=== PATIENT | male | born 2000 | race Caucasian/White ===

== ENCOUNTER 2022-02-19 10:21 | Emergency (ER) | payer OTHER, SELFPAY ==
[2022-02-19 10:39] VITALS: BP 140/72; PULSE 76; RESP 18; TEMP 36.9; O2SAT 99
--- NOTE | 2022-02-19 10:49 | ED.GENADULT ---
HPI - General Adult General Chief complaint: Nausea/Vomiting/Diarrhea Stated complaint: diarrhea History of Present Illness HPI narrative: Patient is a 21-year-old male who presents to the [facility] via POV for an evaluation of diarrhea that has been present for 3 days. Additionally, he reports his diarrhea is intermittent. He states having multiple episodes a day that are watery and brown in color. BMs are painful and cause mild cramping. He also reports bloody diarrhea 2 days ago., Denies taking otc meds. Hx of IBS-C in adolscence. Is not being managed by PCP or GI. Related Data Home Medications Medication Instructions Recorded Confirmed dexmethylphenidate 20 mg 20 mg PO DAILY 02/19/22 02/19/22 capsule,extended release [id number] Allergies Allergy/AdvReac Type Severity Reaction Status Date / Time sulfate ion Allergy Hives Verified 02/19/22 10:48 Review of Systems Review of Systems: Denies fever, chills, weight loss, night sweats, fatigue, weakness, skin color changes, heartburn, nausea, vomiting, constipation, dizziness, LOC, black, tarry stools, mucus in stools, urinary symptoms, back pain, shortness of breath, chest pain, heart palpitations PMFSH Past Medical History Medical History Irritable bowel syndrome with constipation Comments I have reviewed and agree with the patient's past medical, surgical, social, and family hx as documented by the RN. There is no relevant family history pertinent to the presenting complaint. Exam Narrative: GENERAL: Well-appearing, well-nourished, and in no acute distress. HEAD: Normocephalic, atraumatic. No sinus tenderness or facial swelling appreciated. EYES: PERRLA and EOMI. No evidence of erythema, swelling, or drainage. ENT: Mucous membranes moist and pink. Uvula is midline without erythema and swelling. No evidence of petechial rash, cobblestoning, lesions, ulcers, erythema, swelling, exudates, peritonsillar abscess, tenting, or drooling. Breath odor and voice normal. NECK: Supple. No Lymphadenopathy or nuchal rigidity appreciated. CHEST: Bilateral lung rogel are clear to auscultation. No respiratory distress. No evidence of cough or pleuritic cp upon examination. HEART: Regular rate and rhythm. No murmur, gallop, or rub heard. ABDOMEN: Soft, nontender, nondistended, normal active bowel sounds in all quadrants. No guarding. No rebound tenderness. No pulsatile or palpable abdominal mass(es). No CVAT EXTREMITIES: Normal range of motion. No edema. SKIN: Warm, dry, no rash. Excellent skin turgor. NEURO: No focal deficits. Alert and oriented x3. SPECIAL OBSERVATIONS: Exam findings inconsistent with complaints. No distress present. Patient is smiling and laughing. Course Course Emergency Course: The patient/guardian displays adequate decision making capability and despite a detailed discussion of alternatives, benefits, risks, and consequences refuses higher level of care to ER via EMS. Level of Care: Express Care Visit Vital Signs Vital signs: Vital Signs Temperature 98.4 F 02/19/22 10:39 Pulse Rate 76 02/19/22 10:39 Respiratory Rate 18 02/19/22 10:39 Blood Pressure 140/72 02/19/22 10:39 Pulse Oximetry 99 02/19/22 10:39 Oxygen Delivery Room Air 02/19/22 10:39 Temperature 98.4 F 02/19/22 10:39 Pulse Rate 76 02/19/22 10:39 Respiratory Rate 18 02/19/22 10:39 Blood Pressure 140/72 02/19/22 10:39 Pulse Oximetry 99 02/19/22 10:39 Oxygen Delivery Room Air 02/19/22 10:39 Due to an elevated blood pressure, I had a detailed discussion with the patient and/or guardian regarding the need for follow-up with their primary care provider within the next 3-4 days. Patient verbalized understanding and agreed. Medical Decision Making Differential Diagnosis Differential Diagnosis: IBS, abdominal pain, gastroenteritis, GI bleed Vital Signs Vital Signs: Vital Si
== END 2022-02-19 11:12 | disposition left against medical advice (07) ==
PROVIDERS: Emergency Provider Nurse Practitioner Family
DX: R19.7 Diarrhea, unspecified (principal); F90.9 Attention-deficit hyperactivity disorder, unspecified type
CPT/HCPCS: 99211; G0463

== ENCOUNTER 2022-04-04 13:44 | Emergency (ER) | payer OTHER, SELFPAY ==
[2022-04-04 13:57] VITALS: BP 115/70; PULSE 77; RESP 18; TEMP 36.9; O2SAT 100
--- NOTE | 2022-04-04 14:06 | ED.EAR ---
HPI - Ear Problem General Chief complaint: Ear Stated complaint: bilateral ear pain Time Seen by Provider: 04/04/22 13:45 Source: patient Mode of arrival: ambulatory Limitations: no limitations History of Present Illness HPI Narrative: 22-year-old male presents to [facility] with complaints of bilateral ear pain, drainage and decreased hearing for the past 2 to 3 days. Patient denies injury to his ears. Patient denies swimming. Patient denies fever, body aches, chills, cough, congestion or runny nose. MD Complaint: ear pain, ear discharge and decreased hearing Location: bilateral Relieving factors: nothing Exacerbating factors: nothing Discharge from ear: Reports no Associated symptoms ear: decreased hearing Treatment prior to arrival: none Related Data Home Medications Medication Instructions Recorded Confirmed dexmethylphenidate 20 mg 20 mg PO DAILY 02/19/22 04/04/22 capsule,extended release [id number] Allergies Allergy/AdvReac Type Severity Reaction Status Date / Time Sulfa (Sulfonamide Allergy Hives Verified 04/04/22 14:03 Antibiotics) sulfate ion Allergy Hives Verified 02/19/22 10:48 Review of Systems Constitutional: Constitutional: Denies chills, Denies fatigue and Denies fever(s) ENT: Denies vertigo and Denies dizziness Comments: Bilateral ear pain, decreased hearing Respiratory: Respiratory: Denies cough, Denies dyspnea and Denies wheezing Gastrointestinal: Gastrointestinal: Denies diarrhea, Denies nausea and Denies vomiting Integumentary/Breasts: Skin/Breast: Denies rash PMFSH Past Medical History Medical History Irritable bowel syndrome with constipation Social History Social History (Updated 04/04/22 @ 14:08 by Paz Ceja APRN) Substance use: current Substance use type: marijuana Comments At time of signature, I agree with nursing past medical, surgical, social and family history. There is no relevant family history pertinent to the presenting complaint. Exam Const: General: healthy appearing Nutritional Appearance: well nourished Orientation/consciousness: patient oriented x3 Limitations: no limitations HENMT: Head: normal to inspection Ears: Abnormal EAC present erythema bilateral, edema bilateral and otic discharge purulent on the left General nose exam: Normal external nose present Mouth: Yes Normal oral and palatal mucosa present Teeth and gingiva: dentition normal Throat: posterior oropharynx normal and uvula midline Other: Unable to visualize bilateral TMs due to moderate swelling noted bilaterally Eyes: Conjunctivae: conjunctivae normal Neck: Neck: normal visual inspection Resp: Effort & Inspection: normal respiratory effort and not labored Auscultation: clear to auscultation bilaterally and no crackles Cardio: Rate: regular rate Rhythm: regular rhythm Heart sounds: no murmurs Skin: General skin exam: normal color Rashes: no rashes Wounds: no wounds Neuro: General: patient oriented x3 Speech: normal speech Gait exam (Neuro): Normal gait present Extrem: General: normal to inspection Psych: Mental Status: mental status grossly normal Affect: normal affect Attitude: cooperative Course Course Level of Care: Express Care Visit Vital Signs Vital signs: Vital Signs Temperature 36.9 C 04/04/22 13:57 Pulse Rate 77 04/04/22 13:57 Respiratory Rate 18 04/04/22 13:57 Blood Pressure 115/70 04/04/22 13:57 Pulse Oximetry 100 04/04/22 13:57 Oxygen Delivery Room Air 04/04/22 13:57 Temperature 36.9 C 04/04/22 13:57 Pulse Rate 77 04/04/22 13:57 Respiratory Rate 18 04/04/22 13:57 Blood Pressure 115/70 04/04/22 13:57 Pulse Oximetry 100 04/04/22 13:57 Oxygen Delivery Room Air 04/04/22 13:57 Medical Decision Making MDM Narrative Medical decision making narrative: Due to inability to visualize TMs, patient will be placed on oral an
== END 2022-04-04 14:17 | disposition home or self-care (01) ==
PROVIDERS: Emergency Provider Nurse Practitioner Family
DX: H60.93 Unspecified otitis externa, bilateral (principal)
CPT/HCPCS: 99213; G0463